=== PATIENT | male | born 1950 | race Caucasian/White ===

== ENCOUNTER 2016-07-03 10:56 | Emergency (ER) | payer MEDICARE, MEDICAID ==
[2016-07-03 11:33] LABS: Hematocrit 38.5 % (42.0-52.0); Hemoglobin 12.6 gm/dL (13.5-18.0); Mean Cell Volume 89.5 fl (78-100); Mean Corpuscular Hemoglobin 29.3 pg (27-31); Mean Corpuscular Hgb Conc 32.7 g/dl (32-36); Mean Platelet Volume 10.6 fl (6.0-9.5); Neutrophil # 2.7 K/mm3 (1.3-6.0); Platelet Count 169 K/mm3 (150-450); Red Cell Distribution Width 13.9 % (11.5-14.0); White Blood Count 5.4 K/mm3 (4.0-10.5)
[2016-07-03 11:49] LABS: Anion Gap 10.6 mmol/L (6.8-13.8); BUN/Creatinine Ratio 15.7 (9.0-21.6); Bilirubin, Total 0.5 mg/dL (0.0-1.1); Calcium * 8.5 mg/dL (7.9-10.9); Carbon Dioxide 30.2 mmol/L (24-32.6); Potassium 3.8 mmol/L (3.4-4.6); Total Protein 6.6 gm/dL (6.2-8.2)
--- NOTE | 2016-07-03 12:38 | ERNOTE ---
Medical Problem HPI - Narrative Date of Service: 07/03/16 - General Chief Complaint: General Assessment Time Seen by Provider: 07/03/16 12:19 Source: patient, family Exam Limitations: no limitations - Immun/Allergies/Home Medications Immunizations: IMMUNIZATION HX Immunizations Up to Date Yes History of Influenza Vaccine No Hx Pneumococcal Vaccination No Allergies/Adverse Reactions: Allergies No Known Allergies Allergy (Verified 07/03/16 11:10) Home Medications: HOME MEDICATIONS Atorvastatin Calcium 20 mg PO HS 03/04/13 [Last Taken Unknown] Gabapentin 300 mg PO TID 03/04/13 [Last Taken Unknown] Lisinopril 5 mg PO DAILY 03/04/13 [Last Taken Unknown] Sertraline HCl 100 mg PO DAILY 01/17/16 [Last Taken Unknown] Albuterol Sulfate [Albuterol Sulfate 2.5 MG/0.5ML] 1 vial IH Q4H PRN #100 vial 05/07/16 [Last Taken Unknown] Cholecalciferol (Vitamin D3) [Vitamin D3] 2,000 unit PO DAILY 05/07/16 [Last Taken Unknown] Doxycycline Monohydrate 100 mg PO BID #20 tablet 07/03/16 [Last Taken Unknown] - History of Present History Narrative: Pt. comes in with and c/o increased urination and rattling cough and increased fatigue with exertion for three days. states that pt. has had constipation over the weekend that she treated but then pt. developed diarrhea. Pt. denies any chest pain, but pt. does have a hx of HTN, HLD, and parkinsons with recent aspiration pneumonia. Review of Systems - Review of Systems Constitutional: Present: fatigue. Absent: recent illness, fever, chills, malaise EYE: Present: no symptoms reported ENT: Present: no symptoms reported Respiratory: Present: shortness of breath, cough, other - rattling Cardiology: Absent: chest pain, palpitations, edema, claudication Gastrointestinal/Abdominal: Present: diarrhea, constipation. Absent: nausea, vomiting Genitourinary: Present: frequency. Absent: decreased urinary output Musculoskeletal: Present: no symptoms reported. Absent: back pain, joint pain Skin: Present: no symptoms reported Neurological: Present: no symptoms reported. Absent: headache, dizziness/light- headedness, numbness, tingling All Other Systems: All systems neg except as marked - Patient's Past Medical History Patient History - Medical: Other - parkinsons Patient History - Cardiac/Respiratory: No pertinent hx Patient History - Cancer: No Hx of Cancer Patient History - Surgical Procedures: No surgical history Patient History - Other: None - Social History Living Situations: home Psych History: Hx of Depression Smoking Status: Former smoker - Immunizations Immunizations Up to Date: Yes Hx Pneumococcal Vaccination: No History of Influenza Vaccine: No Physical Exam - Physical Exam General Appearance: Present: wd/wn, alert, no apparent distress Eye Exam: Normal inspection: bilateral, PERRL: bilateral, EOMI: bilateral Ears, Nose, Throat: Present: normal ENT inspection, hearing grossly normal, normal pharynx Neck: Present: normal inspection, nontender. Absent: lymphadenopathy (R), lymphadenopathy (L) Respiratory: Present: no respiratory distress, no accessory muscle use, chest nontender, crackles - throughout, rhonchi - throughout Cardiovascular/Chest: Present: regular rate, rhythm, no murmur, normal peripheral pulses Gastrointestinal/Abdominal: Present: normal bowel sounds, nontender, nondistended, soft, no organomegaly Back Exam: Present: normal inspection, normal range of motion, no CVA tenderness , no vertebral tenderness Extremity Exam: Present: normal inspection, non-tender, no edema, normal range of motion Neurological Exam: Present: alert, normal mood/affect, other - pt. with chronic spastisity and weakness Skin Exam: Present: normal color, warm/dry. Absent: pallor, skin rash ED Progress - Date and Time Seen: Date and Time: 07/03/16 13:53 given that pt. has no evidence of heart failure on EKG or CXR feel that BNP may be elevated from likely aspiration pneumonia. - Results and Orders Patient's Lab Results:: I have reviewed the patient's lab results. - Vital Signs Patient's Vital Signs:: I have reviewed the patient's vital signs. Vital Signs: Vital Signs 07/03/16 11:04 Temperature 36.2 C L Pulse Rate 86 Respiratory 20 Rate Blood Pressure 122/70 O2 Sat by Pulse 92 Oximetry - EKG EKG: unchanged from 12/23/11, other - Sinus rhythm left axis deviation previous OR. EKG read: Interp. by me - X-Ray X-Ray #1 X-Ray: chest Interpretation: Reviewed by me X-ray Comments: LLL pneumonia - Progress/Reassessment Chief Complaint: General Assessment Departure - Departure Clinical Impression: Aspiration pneumonia Qualifiers: Aspiration pneumonia type: unspecified Laterality: left Lung location: lower lobe of lung Qualified Code(s): J69.0 - Pneumonitis due to inhalation of food and vomit Disposition: Home self-care Condition: Good Instructions: Aspiration Pneumonia Additional Instructions: Please follow up with primary provider in 2-3 days. Please discuss the need for a swallow study and speech therapy with your primary physician. Prescriptions: Doxycycline Monohydrate 100 mg PO BID #20 tablet
[2016-07-03 13:33] LABS: Urine Bilirubin Negative (NEGATIVE); Urine Blood Negative /ul (NEGATIVE); Urine Ketone 5 mg/dL (NEGATIVE); Urine Nitrite Negative (NEGATIVE); Urine Protein Negative (NEGATIVE); Urine Urobilinogen Normal (NORMAL)
[2016-07-03 13:41] LABS: Urine Appearance Clear; Urine Bacteria None Seen; Urine Color Yellow; Urine RBC TRACE /hpf (0-5); Urine WBC TRACE /hpf (0-5)
[2016-07-03 13:42] LABS: Urine Amorphous Sediment Moderate - 2+ (NONE-FEW); Urine Mucus Moderate - 2+
[2016-07-03 13:46] VITALS: BP 140/95
== END 2016-07-03 14:08 | disposition home or self-care (01) ==
LOC: ER 10:56
DX: J69.0 Pneumonitis due to inhalation of food and vomit (principal); Z87.891 Personal history of nicotine dependence

== ENCOUNTER 2016-09-29 11:40 | Emergency (ER) | payer OTHER, MEDICARE, MEDICAID ==
[2016-09-29 12:52] LABS: Hematocrit 49.8 % (42.0-52.0); Hemoglobin 15.7 gm/dL (13.5-18.0); Mean Cell Volume 92.4 fl (78-100); Mean Corpuscular Hemoglobin 29.1 pg (27-31); Mean Corpuscular Hgb Conc 31.5 g/dl (32-36); Mean Platelet Volume 10.3 fl (6.0-9.5); NRBC# 0.1 k/mm3 (0-1); Neutrophil # 18.9 K/mm3 (1.3-6.0); Neutrophil % 81.3 % (42-75.0); Platelet Count 316 K/mm3 (150-450); Red Blood Count 5.39 M/mm3 (4.7-6.0); Red Cell Distribution Width 14.3 % (11.5-14.0); White Blood Count 23.2 K/mm3 (4.0-10.5)
[2016-09-29 12:56] LABS: BUN/Creatinine Ratio 16.4 (9.0-21.6); Bilirubin, Total 0.8 mg/dL (0.0-1.1); Ca. Corrected For Albumin 9.5 mg/dL (8.4-10.2); Calcium * 9.8 mg/dL (7.9-10.9); Carbon Dioxide 31.5 mmol/L (24-32.6); Potassium 4.5 mmol/L (3.4-4.6); Total Protein 8.3 gm/dL (6.2-8.2); Troponin I 0.027 ng/ml (0.00-0.10)
[2016-09-29 12:57] LABS: INR 0.97 INR (0.90-1.10); Partial Thrombolplastin Time 23.6 Seconds (24-32); Prothrombin Time (Patient) 10.1 Seconds (9.4-11.4)
[2016-09-29 13:09] VITALS: BP 99/65
--- NOTE | 2016-09-29 13:15 | ERNOTE ---
Medical Problem HPI - Narrative Date of Service: 09/29/16 - General Source: other - no immediate Hx available. Exam Limitations: clinical condition - Immun/Allergies/Home Medications Immunizations: IMMUNIZATION HX Immunizations Up to Date Yes History of Influenza Vaccine No Hx Pneumococcal Vaccination No Allergies/Adverse Reactions: Allergies No Known Allergies Allergy (Verified 07/03/16 11:10) Home Medications: HOME MEDICATIONS Atorvastatin Calcium 20 mg PO HS 03/04/13 [Last Taken Unknown] Gabapentin 300 mg PO TID 03/04/13 [Last Taken Unknown] Lisinopril 5 mg PO DAILY 03/04/13 [Last Taken Unknown] Sertraline HCl 100 mg PO DAILY 01/17/16 [Last Taken Unknown] Albuterol Sulfate [Albuterol Sulfate 2.5 MG/0.5ML] 1 vial IH Q4H PRN #100 vial 05/07/16 [Last Taken Unknown] Cholecalciferol (Vitamin D3) [Vitamin D3] 2,000 unit PO DAILY 05/07/16 [Last Taken Unknown] Doxycycline Monohydrate 100 mg PO BID #20 tablet 07/03/16 [Last Taken Unknown] - History of Present History Narrative: Patient arrives from waiting room blue and not breathing with vomitus in mouth and on shirt. Non-bloody. No pulse felt in wheelchair. Code immediately called. No other Hx available. Timing: unsure Severity: severe Modifying Factors - (Improves): Present: other - unable Modifying Factors - (Worsens): Present: other - unable Review of Systems - Narrative Narrative: ROS unable d/t unresponsiveness - Patient's Past Medical History Patient History - Medical: Other - parkinsons Patient History - Cardiac/Respiratory: No pertinent hx Patient History - Cancer: No Hx of Cancer Patient History - Surgical Procedures: No surgical history Patient History - Other: None - Social History Living Situations: home Psych History: Hx of Depression - Immunizations Immunizations Up to Date: Yes Hx Pneumococcal Vaccination: No History of Influenza Vaccine: No Physical Exam - Physical Exam General Appearance: Present: other - blue and unresponsive Eye Exam: Normal inspection: bilateral - Pupils not pinpoint Ears, Nose, Throat: Present: other - vomit in throat and airway Neck: Present: other - trachea midline Respiratory: Present: other - not breathing Cardiovascular/Chest: Present: other - no pulse Gastrointestinal/Abdominal: Present: other - no rigidity Male Genitals Exam: Present: other - blood from urethral meatus Extremity Exam: Present: other - no deformity Neurological Exam: Present: other - unresponsive, not breaething Skin Exam: Present: other - blue ED Progress - Results and Orders Patient's Lab Results:: I have reviewed the patient's lab results. - Vital Signs Patient's Vital Signs:: I have reviewed the patient's vital signs. - EKG EKG read: Interp. by me EKG Comments: Junctional tachycardia. No clear STEMI. - X-Ray X-Ray #1 X-Ray: chest Interpretation: Interp. by me X-ray Comments: No PTX, ETT above arielle - Progress/Reassessment Progress Note-Subjective: 09/29/16 13:03 Patientblue and not breathing on arrival. Immediately placed in bed and CPR started, no pulse. Nursing Started CPR and placed IO. I intubated the patient. Procedure note. Intubation. Cricoid pressure placed. Initial direct visualization with laryngosopy blade unsuccessful Attempt with Glidescope successful with visualization of gianluca cords and visualized placement through the cords. 7.5 Tube placed and bulb inflated. Vomit noted in airway. Confirmed with bilateral breath sounds heard and no sounds over the epigastrium. ETCO2 64. No other complications noted. 2 rounds of epi givem. Possible bout of Torsades, mag given and amiodarone. Spontaneous pulses noted. No pressors neded. I spoke with [facility] and air transport OK'd. Dr Gastelum and Dr Frazier accept. Critical care time 30 minutes. I spent 30 minutes in the direct care of the patient. 09/29/16 13:14 Departure - Departure Clinical Impression: Cardiac arrest Disposition: [facility] Condition: Critical Referrals: Mark Harris, PAC [Primary Care Provider] - - Critical Care Total Time (mins): 30
[2016-09-29] MEDS ORDERED: MIDAZOLAM HCL/PF 5 MG/ML VIAL ONE (13:21)
--- OUTSIDE RECORDS SUMMARY | 2016-09-29 23:37 | XMS REPORT | Continuity of Care Document ---
:1950 Author Organization [facility] ([facility]) [place] [address] Phone [phone] Care Team Providers Name Role Phone Unavailable Primary Care Provider Unavailable Source Comments This disclosure is being made pursuant to the Care Everywhere program, applicable federal and state laws, and may not contain all informaitonavailable regarding this patient.[facility] ([facility]) Active Allergies and Adverse Reactions No Known Allergies Current Medications Not on file Active Problems Problem Noted Date 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 Aspiration into airway 09/29/2016 Cardiac arrest 09/29/2016 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 Acute respiratory failure with hypoxia 09/29/2016 Lactic acidosis 09/29/2016 Hematuria 09/29/2016 RENETTA (acute kidney injury) 09/29/2016 Hyperkalemia 09/29/2016 Other encephalopathy 09/29/2016 Most Recent Encounters Date Type Specialty Providers Description 09/29/2016 Hospital Encounter Intensive Care Stalin Henson, Dx: Cardiac arrest Inpatient - Adult MD (Primary Dx) 09/29/2016 Hospital Encounter Heart and Vascular Chief Comp: Patient Reported Reason For Visit Social History Tobacco Use Types Packs/Day Years Used Date Former Smoker Cigarettes 3 40 Comments:2-3 ppd x 40 years, quit 2016 Alcohol Use Drinks/Week oz/Week Comments No 0 Standard drinks or equivalent 0.0 Last Filed Vital Signs Vital Sign Reading Time Taken Blood Pressure 137/87 09/29/2016 10:31 PM CDT Pulse - - Temperature 37.1 C (98.8 F) 09/29/2016 3:00 PM CDT Respiratory Rate - - Height - - Weight - - Body Mass Index - - Oxygen Saturation 98% 09/29/2016 10:31 PM CDT Plan of Care Health Maintenance Due Date Last Done Comments HCV Screening 1950 Lipid Disorder Screening 1970 Colonoscopy 2002 Prostate Cancer Screening 2002 Results from Last 3 Months CREATININE-URINE, RANDOM (09/29/2016 6:46 PM) Component Value Range Creatinine, Urine, Random 94.3 mg/dL Specimen Urine SODIUM-URINE,RANDOM (09/29/2016 6:46 PM) Component Value Range Sodium, Urine, Random 172 mEq/L Specimen Urine URINE MICROSCOPIC (09/29/2016 6:46 PM) Component Value Range White Blood Cells, Urine >180(H) 0-5 /HPF Red Blood Cells, Urine >180(H) 0-2 /HPF Bacteria, Urine Few(A) /HPF Mucous-Urine Moderate(A) None, Rare Specimen Urine URINALYSIS (09/29/2016 6:46 PM) Component Value Range Color, Urine Red(A) Straw, Pale Yellow, Yellow, Clear, None Clarity, Urine Cloudy(A) Clear pH, Urine 5.0 <9.0 Glucose, Urine Negative Negative Blood, Urine 3+(A) Negative Ketones, Urine Negative Negative Protein, Urine 2+(A) Negative Urobilinogen, Urine Normal Normal Bilirubin, Urine Negative Negative Leukocyte Esterase, Urine 2+(A) Negative Nitrite, Urine Negative Negative Spec [place], Urine 1.020 1.000-1.[address] ABDOMEN& PELVIS WO CONTRAST ([id number]) (09/29/2016 6:02 PM) Narrative Procedure: CT ABDOMEN & PELVIS WO CONTRAST ([id number]) Clinical Indication: Hematuria, acute kidney injury, evaluate for renal stone Technique: CT exam of the abdomen and pelvis is performed without IV contrast. Comparison: Abdominal radiograph dated 09/29/2016. Findings: The absence of IV contrast limits assessment of the solid organs, bowel, and vascular structures. Patient's arms by his side causes beam hardening artifact which limits evaluation of the upper abdomen an portions of the kidneys. Lower chest: Bibasilar atelectasis. Liver: Visualized aspects unremarkable. Bile ducts: Not dilated. Gallbladder: Not distended Pancreas: Unremarkable Spleen: Visualized aspect unremarkable Adrenal glands: Normal Kidneys: Partially obscured by beam hardening artifact. No renal stones. No hydronephrosis. 1.3 cm exophytic lesion arising from the inferior pole of the right kidney, HU 10-20. Ureters: Not distended Bladder: Rodas catheterization. Mild apparent wall thickening and surrounding inflammatory change. Aorta: Nonaneurysmal, calcified atherosclerotic disease Retroperitoneum: No lymphadenopathy. Peritoneum: No ascites or pneumoperitoneum. Mesentery: No lymphadenopathy Stomach: Enteric tube with tip in the gastric fundus, sidehole near the GE junction. Small bowel: Not distended. Colon: Not distended. Appendix: Not visualized with certainty. Extraperitoneal pelvis: No lymphadenopathy. Prostate: Prostate calcifications. Abdominal wall: Normal Bones: Age-indeterminate compression deformity of the L1 and L5 vertebral bodies. Moderate multilevel degenerative change. Chronic left posterior rib fractures. Impression: 1. No renal or ureteral stones demonstrated. No hydroureteronephrosis. 2. 1.3 cm exophytic lesion arising from the inferior pole of the right kidney, Hounsfield units somewhat greater than expected for simple cyst, may represent representing hemorrhagic or proteinaceous cyst. Further evaluation with ultrasound may be performed to confirm cystic nature and exclude a solid lesion. 3. Urinary bladder decompressed by Rodas catheter. Urinary bladder wall thickening and surrounding fat stranding is present suggesting cystitis or infection. 4. Enteric tube appears retracted when compared with prior radiograph with tip in the fundus and sidehole near the GE junction. Suggest advancement by approximately 5 cm. 5. Age indeterminate compression deformities of L1 and L5 vertebral bodies. This final report is in agreement with the critical and emergent preliminary findings reported by the radiology transporter protection specialist. The preliminary report did not include the findings of bladder wall thickening and surrounding inflammatory change which may be cystitis or infection, and tip of the enteric tube in the gastric fundus and sidehole near the GE junction with suggestion for advancement which was added to the final report. This was called to Thuan Morris MD via pager/extension [phone] at the time of the final report at 7531hrs on 09/29/2016. Procedure Note Martell, Incoming Imaging Results - Sat September 29, 2016 7:14 PM CDT Procedure: CT ABDOMEN & PELVIS WO CONTRAST ([id number]) Clinical Indication: Hematuria, acute kidney injury, evaluate for renal stone Technique: CT exam of the abdomen and pelvis is performed without IV contrast. Comparison: Abdominal radiograph dated 09/29/2016. Findings: The absence of IV contrast limits assessment of the solid organs, bowel, and vascular structures. Patient's arms by his side causes beam hardening artifact which limits evaluation of the upper abdomen an portions of the kidneys. Lower chest: Bibasilar atelectasis. Liver: Visualized aspects unremarkable. Bile ducts: Not dilated. Gallbladder: Not distended Pancreas: Unremarkable Spleen: Visualized aspect unremarkable Adrenal glands: Normal Kidneys: Partially obscured by beam hardening artifact. No renal stones. No hydronephrosis. 1.3 cm exophytic lesion arising from the inferior pole of the right kidney, HU 10-20. Ureters: Not distended Bladder: Rodas catheterization. Mild apparent wall thickening and surrounding inflammatory change. Aorta: Nonaneurysmal, calcified atherosclerotic disease Retroperitoneum: No lymphadenopathy. Peritoneum: No ascites or pneumoperitoneum. Mesentery: No lymphadenopathy Stomach: Enteric tube with tip in the gastric fundus, sidehole near the GE junction. Small bowel: Not distended. Colon: Not distended. Appendix: Not visualized with certainty. Extraperitoneal pelvis: No lymphadenopathy. Prostate: Prostate calcifications. Abdominal wall: Normal Bones: Age-indeterminate compression deformity of the L1 and L5 vertebral bodies. Moderate multilevel degenerative change. Chronic left posterior rib fractures. Impression: 1. No renal or ureteral stones demonstrated. No hydroureteronephrosis. 2. 1.3 cm exophytic lesion arising from the inferior pole of the right kidney, Hounsfield units somewhat greater than expected for simple cyst, may represent representing hemorrhagic or proteinaceous cyst. Further evaluation with ultrasound may be performed to confirm cystic nature and exclude a solid lesion. 3. Urinary bladder decompressed by Rodas catheter. Urinary bladder wall thickening and surrounding fat stranding is present suggesting cystitis or infection. 4. Enteric tube appears retracted when compared with prior radiograph with tip in the fundus and sidehole near the GE junction. Suggest advancement by approximately 5 cm. 5. Age indeterminate compression deformities of L1 and L5 vertebral bodies. This final report is in agreement with the critical and emergent preliminary findings reported by the radiology transporter protection specialist. The preliminary report did not include the findings of bladder wall thickening and surrounding inflammatory change which may be cystitis or infection, and tip of the enteric tube in the gastric fundus and sidehole near the GE junction with suggestion for advancement which was added to the final report. This was called to Thuan Morris MD via pager/extension [phone] at the time of the final report at 8464 hrs on 09/29/2016. LACTIC ACID, WHOLE BLOOD ([facility]) (09/29/2016 3:48 PM) Component Value Range Lactic Acid, Whole Blood 2.3(H)Comment: 0.5-2.0 mEq/L Glycolate, the principle toxic metabolite of ethylene glycol, can cause artifactual elevation of measured lactate. Specimen Whole Blood CALCIUM, IONIZED ([facility]) (09/29/2016 3:48 PM) Component Value Range Ionized Calcium 4.5 3.8-5.2 mg/dL Specimen Whole Blood GLUCOSE ([facility]) (09/29/2016 3:48 PM) Component Value Range Glucose, Whole Blood 149(H) 65-99 mg/dL Specimen Whole Blood ARTERIAL BLOOD GAS ([facility]) (09/29/2016 3:48 PM) Component Value Range pH, Arterial 7.33(L) 7.35-7.45 pCO2, Arterial 41 35-45 torr pO2, Arterial 163(H) 80-90 torr Base Excess, Arterial -5(L) -2-2 mEq/L Bicarbonate, Arterial 21(L) 22-26 mEq/L Total CO2, Arterial 23(L) 24-32 mEq/L Temperature, Arterial 37.0 Degrees C Specimen Whole Blood CHEST - AP/PA (09/29/2016 2:52 PM) Impressions Findings / Impression: 1. The endotracheal tube is in appropriate position, 3 cm from the arielle. The NG tube is in gastric body as confirmed on subsequent abdominal film. 2. There is minimal left perihilar and bibasilar opacity which could be related to known aspiration or atelectasis. Follow-up may be obtained, as clinically indicated. 3. No pleural effusion or pneumothorax. 4. The cardiac mediastinal silhouette and pulmonary vasculature are normal. Narrative Procedure: CHEST - AP/PA Technique: Portable AP chest radiograph Comparison: None Clinical Indication: Cardiac arrest, aspiration Procedure Note Martell, Incoming Imaging Results - Sat September 29, 2016 9:00 PM CDT Procedure: CHEST - AP/PA Technique: Portable AP chest radiograph Comparison: None Clinical Indication: Cardiac arrest, aspiration IMPRESSION Findings / Impression: 1. The endotracheal tube is in appropriate position, 3 cm from the arielle. The NG tube is in gastric body as confirmed on subsequent abdominal film. 2. There is minimal left perihilar and bibasilar opacity which could be related to known aspiration or atelectasis. Follow-up may be obtained, as clinically indicated. 3. No pleural effusion or pneumothorax. 4. The cardiac mediastinal silhouette and pulmonary vasculature are normal. ABDOMEN AP SUPINE (09/29/2016 2:52 PM) Narrative Procedure:ABDOMEN AP SUPINE Clinical Indication: Cardiac arrest, NGT placement Technique: Supine portable radiograph of the lower chest and upper abdomen. Comparison: None. Findings/impression: The tip of the NG tube is located in the gastric body. The bowel gas pattern is nonobstructive.The visualized lung bases are clear. Procedure Note Martell, Incoming Imaging Results - Sat September 29, 2016 8:59 PM CDT Procedure: ABDOMEN AP SUPINE Clinical Indication: Cardiac arrest, NGT placement Technique: Supine portable radiograph of the lower chest and upper abdomen. Comparison: None. Findings/impression: The tip of the NG tube is located in the gastric body. The bowel gas pattern is nonobstructive. The visualized lung bases are clear. CREATINE KINASE (09/29/2016 2:50 PM) Component Value Range Creatine Kinase 248 39-308 U/L Specimen Blood D-DIMER (09/29/2016 2:50 PM) Component Value Range D-Dimer 26.91(H)Comment: <=0.50 g/mL FEU D-Dimer units of measurement are g FEU/mL, where FEU=fibrinogen equivalent units. In conjunction with a non-high clinical probability assessment, a normal (< 0.5 g FEU/mL) D-dimer excludes deep vein thrombosis and pulmonary embolism with high sensitivity. Increased D- dimer values are abnormal but do not indicate a specific disease state. In addition to deep venous thrombosis and pulmonary e mbolism, elevated D-dimer values may be seen in disseminated intravascular coagulation, fibrinolysis, recent surgery, active bleeding, hematomas, trauma, , liver disease, inflammation, and malignancy. Specimen Blood GLUCOSE (09/29/2016 2:50 PM) Component Value Range Glucose 167(H)Comment: 65-99 mg/dL The Expert Committee on the Diagnosis and Classification of Diabetes has defined impaired fasting glucose as greater than or equal to 100 mg/dL but less than 126 mg/dL.(Diabetes Care 28 (Suppl 1)S41,2005) Specimen Blood THYROID STIMULATING HORMONE (TSH), WITH REFLEX FREE T-4 (09/29/2016 2:50 PM) Component Value Range TSH, Reflex 1.90 0.27-4.20 IU/mL Specimen Blood CALCIUM (09/29/2016 2:50 PM) Component Value Range Calcium 7.4(L) 8.5-10.5 mg/dL Specimen Blood TROPONIN T (09/29/2016 2:50 PM) Component Value Range Troponin-T 0.04 <=0.10 ng/mL Specimen Blood TOTAL PROTEIN (09/29/2016 2:50 PM) Component Value Range Total Protein 5.4(L) 6.0-8.0 g/dL Specimen Blood ALBUMIN (09/29/2016 2:50 PM) Component Value Range Albumin 2.9(L) 3.4-4.8 g/dL Specimen Blood ALKALINE PHOSPHATASE (09/29/2016 2:50 PM) Component Value Range ALP 64 40-129 U/L Specimen Blood GAMMA GLUTAMYLTRANSPEPTIDASE (09/29/2016 2:50 PM) Component Value Range GGT 10 8-61 U/L Specimen Blood ALANINE AMINOTRANSFERASE (09/29/2016 2:50 PM) Component Value Range ALT 27Comment: 0-41 U/L The upper limit of normal for alanine aminotransferase (ALT) reference ranges for adults is controversial with some authorities recommending limit as low as 30 U/L for males and 19 U/L for females. Th ere is increased incidence of subclinical liver disease (e.g., early steatohepatitis) in patients with ALT values in the range of 31-41 U/L for males and 20-33 U/L for females. ALT values should alway s be interpreted in conjunction with clinical history, physical examination findings, and, if applicable, data from other diagnostic tests. Specimen Blood BILIRUBIN, TOTAL (09/29/2016 2:50 PM) Component Value Range Bilirubin Total 0.5 <=1.2 mg/dL Specimen Blood PHOSPHORUS (09/29/2016 2:50 PM) Component Value Range Phosphorus 3.8Comment:New reference range installed 03/08/15. 2.5-4.5 mg/dL Specimen Blood MAGNESIUM (09/29/2016 2:50 PM) Component Value Range Magnesium 2.6 1.5-2.9 mg/dL Specimen Blood CREATININE (09/29/2016 2:50 PM) Component Value Range Creatinine 1.3(H)Comment: 0.6-1.2 mg/dL Creatinine switched to enzymatic method on 10/03/2010.GFR equation switched to IDMS-traceable MDRD equation on 10/03/2010. Calculated GFR values are not valid in clinical settings where serum creatinine is changing. Calculated GFR 56(L) >60 mL/min/1.73 m2 Specimen Blood BLOOD UREA NITROGEN (09/29/2016 2:50 PM) Component Value Range BUN 23(H) 10-20 mg/dL Specimen Blood CO2 (09/29/2016 2:50 PM) Component Value Range CO2 19(L) 22-29 mEq/L Anion Gap 15 <17 mEq/L Specimen Blood CHLORIDE (09/29/2016 2:50 PM) Component Value Range Chloride 109(H) 95-107 mEq/L Specimen Blood POTASSIUM (09/29/2016 2:50 PM) Component Value Range Potassium 5.2(H) 3.5-5.0 mEq/L Specimen Blood SODIUM (09/29/2016 2:50 PM) Component Value Range Sodium 143 135-145 mEq/L Specimen Blood CBC (COMPLETE BLOOD COUNT) (09/29/2016 2:50 PM) Component Value Range WBC Count 24.7(H) 3.7-10.5 K/MM3 RBC Count 4.35(L) 4.50-6.20 M/MM3 Hemoglobin 12.6(L) 13.2-17.7 g/dL Hematocrit 40 40-52 % MCV (Mean Corpuscular Volume) 91 82-99 FL MCH (Mean Corpuscular Hemoglobin) 29 25-35 PG MCHC (Mean Corpuscular Hemoglobin Concentration) 32 32-36 % Platelet Count 216 150-400 K/MM3 MPV (Mean Platelet Volume) 10.1 9.4-12.3 FL RBC Dist Width-STD 48.2(H) 35.1-43.9 FL RBC Distrib Width 14.4 9.0-14.5 % Nucleated RBC 0 /100 WBC Specimen Whole Blood ECHO ADULT : AFTERHOURS ECHOCARDIOGRAM, TRANSTHORACIC (TTP) (09/29/2016 1:59 PM ) Component Value Range Interpretation Summary Portable, emergent echo performed in ICU Echo image quality: technically difficult, intubated patient Normal left ventricular systolic function. LV Ejection Fraction=60% (based on visual estimate). Left Ventricle (LV) Normal left ventricular size. Normal left ventricular systolic function. LV Ejection Fraction=60% (based on visual estimate). Right Ventricle (RV) Normal right ventricular size. Normal right ventricular systolic function. Left and Right Atria (LA, RA) Normal LA chamber size. Visualization of the RA chamber is inadequate Mitral Valve (MV) Calcified mitral annulus. No mitral regurgitation Tricuspid Valve (TV) Visualization of the Tricuspid Valve is inadequate Aortic Valve (AoV) Visualization of the Aortic Valve is limited The aortic valve structure is probably trileaflet - not all coronary cusps are visualized. Pulmonic Valve (PV) Pulmonic valve is not visualized Pericardium/Pleura Trivial pericardial effusion. Procedures Limited 2D ([id number]) Limited Doppler ([id number]) Inf. Vena Cava (IVC) / Pulm. Veins The IVC size is upper limit of normal. Technical Comments Portable, emergent echo performed in ICU Echo image quality: technically difficult Primary ICD-9 Code Shock, unspecified (785.50) Low Range of LVEF 60 High Range of LVEF 60 Study Manager Ana Interpreting Physician Stalin Henson MD electronically signed on 2016-09-29 18:17:15.09
== END 2016-09-29 13:40 | disposition short-term general hospital (02) ==
LOC: ER 11:40
PROC: 0BH17EZ Insertion of Endotracheal Airway into Trachea, Via Natural or Artificial Opening (ICD-10-PCS; principal; 2016-09-29)
PROC: 5A12012 Performance of Cardiac Output, Single, Manual (ICD-10-PCS; 2016-09-29)
PROC: 4A033R1 Measurement of Arterial Saturation, Peripheral, Percutaneous Approach (ICD-10-PCS; 2016-09-29)
DX: I46.9 Cardiac arrest, cause unspecified (principal)